=== PATIENT | male | born 1985 | race Caucasian/White ===

== ENCOUNTER 2017-12-18 15:35 | Outpatient (CLI) | payer OTHER | END 2017-12-18 15:36 | disposition home or self-care (01) | LOC: BICRAD 15:35 | PROVIDERS: ATTEND Physician Assistant | DX: R05 Cough (principal); R50.9 Fever, unspecified | CPT/HCPCS: 71046 ==

== ENCOUNTER 2017-12-21 10:32 | Outpatient (CLI) | payer OTHER ==
--- NOTE | 2017-12-21 13:35 | ULT ---
ULTRASOUND ABDOMEN: HISTORY: Elevated liver enzymes. Fever. FINDINGS: The liver demonstrates increased echogenicity, consistent with fatty infiltration. No focal mass or intrahepatic ductal dilatation is seen. The spleen measures 14.3 cm in length. A shadowing mobile g allstone is seen without gallbladder wall thickening or pericholecystic fluid. The common duct measu res 4 mm in diameter. The kidneys are unremarkable. The pancreas is not satisfactorily visualized. The visualized portions of the aorta and IVC are unremarkable. No free fluid is seen. IMPRESSION: 1. Fatty liver. 2. Splenomegaly. 3. Cholelithiasis. POS: [facility]
== END 2017-12-21 10:33 | disposition home or self-care (01) ==
LOC: ULT 10:32
PROVIDERS: ATTEND Physician Assistant
DX: R74.8 Abnormal levels of other serum enzymes (principal); K76.0 Fatty (change of) liver, not elsewhere classified; R16.1 Splenomegaly, not elsewhere classified; K80.20 Calculus of gallbladder without cholecystitis without obstruction
CPT/HCPCS: 76700

== ENCOUNTER 2018-03-21 08:43 | Outpatient (CLI) | payer OTHER | END 2018-03-21 08:44 | disposition home or self-care (01) | LOC: DTY/OP 08:43 | PROVIDERS: ATTEND Surgery | DX: E66.01 Morbid (severe) obesity due to excess calories (principal) | CPT/HCPCS: 97802 ==

== ENCOUNTER 2018-04-17 09:28 | Outpatient (CLI) | payer OTHER | END 2018-04-17 09:29 | disposition home or self-care (01) | LOC: DTY/OP 09:28 | PROVIDERS: ATTEND Surgery | DX: E66.01 Morbid (severe) obesity due to excess calories (principal) | CPT/HCPCS: 97802 ==

== ENCOUNTER 2018-05-01 15:45 | Outpatient (CLI) | payer OTHER | END 2018-05-01 15:46 | disposition home or self-care (01) | LOC: CTENTCT 15:45 | PROVIDERS: ATTEND Specialist | DX: J32.9 Chronic sinusitis, unspecified (principal) | CPT/HCPCS: 70486 ==

== ENCOUNTER 2018-06-07 11:57 | Day surgery (SDC) | payer OTHER ==
[2018-06-06 13:10] VITALS: BMI 49.5
[2018-06-07] MEDS ORDERED: Oxymetazoline HCl 0.05% ( 15 ML ) ONE ×2 (12:33→13:00)
[2018-06-07] MEDS ORDERED: Lidocaine 1% w/Epinephrine 1:100K 30 ML VIAL ONE (12:59)
[2018-06-07] MEDS ORDERED: Bacitracin Zinc Ointment 30 gm TUBE ONE (13:00)
[2018-06-07] MEDS ORDERED: EPINEPHrine 1 MG/10 ML Abboject SYRINGE ONE (13:00)
[2018-06-07] MEDS ORDERED: Midazolam HCl 2 mg/2 ml Vial ONE (13:09)
[2018-06-07] MEDS ORDERED: Fentanyl 100 MCG/2 ML VIAL ONE ×3 (13:09→14:54)
--- NOTE | 2018-06-07 18:24 | OP ---
PREOPERATIVE DIAGNOSES: Chronic sinusitis, nasal polyposis, deviated septum, hypertrophic inferior t urbinates. POSTOPERATIVE DIAGNOSES: Chronic sinusitis, nasal polyposis, deviated septum, hypertrophic inferior turbinates. PROCEDURES PERFORMED: 1. Bilateral nasal endoscopy with maxillary antrostomy with removal of tissue. 2. Bilateral nasal endoscopy with total ethmoidectomy. 3. Bilateral nasal endoscopy with frontal sinusotomy. 4. Bilateral nasal endoscopy with sphenoidotomy. 5. Bilateral nasal endoscopy with nasal polypectomy and septoplasty. 6. Bilateral nasal endoscopy with submucosal resection inferior turbinates. PROCEDURE IN DETAIL: After consent was obtained, the patient was identified, brought to the operatin g room, and placed on the operating room table in the supine position. Consent was obtained, notifyi ng the patient of the possibility of additional infections, bleeding, brain injury, and eye/orbital i njury. The patient was placed on the operating room table, and general endotracheal anesthesia and intravenous access was obtained. The patient was then positioned, prepped and draped for endoscopic sinus surgery. Nasal preparation included trimming nasal vestibular hairs and spraying in topical Af rin. We then placed Afrin topical solution on nasal pledgets and strategically located them intranas ally. The perinasal mucosa was injected with 1% lidocaine with 1:100,000 epinephrine in the submucop erichondrial plane of the septum, lateral nasal wall, and anterior to the uncinate. The patient was then prepped and draped in a sterile fashion and positioned for endoscopic sinus surgery. Endoscopic Sinus Surgery: With the 0-degree endoscope, the patient underwent systematic nasal endosc opy. There were no suspicious internasal masses or lesions identified. We then focused our attentio n to the osteomeatal complex region under the middle turbinate. Gabby Bullosa: The gabby bullosa was identified and entered with a sickle blade. The lateral aspe ct of the gabby bullosa was meticulously resected while leaving the medial most aspect to form the n ew middle turbinate. Attention was made not to violate the mucosa. The straight biting punches and micro-debrider were used to remove shrouds of mucosa and bony debris. Maxillary Antrostomy: The uncinate was then identified and the extent of the uncinate was appreciate d by out-fracturing the uncinate with the ball-tip probe. We then used the sickle blade to disarticu late the uncinate from the lateral nasal wall. This was then removed with straight biting and upbiti ng punches with the remaining shrouds of mucosa and bony septum removed with the micro-debrider. The natural os of the maxillary sinus was then identified and enlarged with the maxillary punches and ba ck biting forceps. Total Ethmoidectomy: The anterior face of the ethmoid bulla was entered and with the micro-debrider, dissection continued posteriorly to the ground lamella. The limits of dissection included the inser tion of the middle turbinate, medial orbital wall, and base of skull. We similarly identified the fr ontal recess and removed shrouds of bone and debris in that region to obtain patency into the agger n asi region and frontal recess. We then entered the ground lamella and its anteroinferior aspect and proceeded posteriorly, opening the posterior ethmoid air-cell system. Again, the limits of dissectio n included the base of skull and medial orbital wall. Sphenoidotomy: The anterior face of the sphenoid was identified and entered in its extreme anteroinferior aspect. A sphenoid punch was then used to enlarge the sphenoidotomy and no injury to the optic nerve or internal carotid artery occurred. Outfracture of the Inferior Turbinates: The inferior turbinates were visualized under endoscopic vis ualization and outfractured with the elevator. The inferolateral edge of the inferior turbinate was then cauterized along its length with the suction cautery without difficulty. Outfracture & Cautery of the Inferior Turbinates: The inferior turbinates were visualized with a 0-d egree endoscope and outfractured with a [place] elevator. The inferior medial aspect was cauterized wi th the electrocautery. Hemostasis was obtained. After adequate airway was established, we turned ou r attention to the contralateral side and used a similar procedure. Again, a [place] elevator was used to outfracture inferior turbinates under endoscopic visualization. With a suction cautery, the free inferior medial aspect was cauterized under direct visualization along the length of the inferior tu rbinate. Septoplasty: After local anesthesia was infiltrated into the submucoperichondrial plane, a standard Eliseo incision was made with a #15 blade down to the level of the septal cartilage. The caudal phil vator was used to elevate the mucoperichondrium from the underlying cartilage. We then proceeded bey ond the bony cartilaginous junction and elevated the bony periosteum as well. Great attention was pa id to the spur to prevent rent formation in the septal flap. A transcartilaginous incision was then m ally, while preserving an adequate dorsal and caudal cartilaginous strut for tip support. The deforme d cartilage was removed and disarticulated from the bony cartilaginous junction and maxillary crest. This was placed in saline and would later be crushed and returned to the mucoperichondrial envelope. We then elevated the contralateral periosteum from the bony cartilaginous region and removed the de formed portions of the bone and bony spurs. The cartilage was then crushed and placed back into the mucoperichondrial envelope and the mucosa was re-approximated with a quilting stitch composed of rapi dly absorbent gut suture. The Eliseo incision was also closed with interrupted gut suture. At the completion of the case, Bowles splints were placed and suture secured to the caudal septum. At the completion of the case, Rice keel splints were placed in the ethmoid cavities after the ethmoi dectomy. There were no complications. The patient tolerated the procedure well and was discharged t o the recovery room in stable condition prior to return to the preoperative Day Stay with [facility]. Prescriptions for pain medication and antibiotics were provided. The patient received intramuscular Depo-Medrol during the case.
== END 2018-06-07 17:13 | disposition home or self-care (01) ==
LOC: SDC 11:57
PROVIDERS: ATTEND Specialist
PROC: 09SM0ZZ Reposition Nasal Septum, Open Approach (ICD-10-PCS; principal; 2018-06-07)
PROC: 09TU8ZZ Resection of Right Ethmoid Sinus, Via Natural or Artificial Opening Endoscopic (ICD-10-PCS; principal; 2018-06-07)
PROC: 099Q8ZZ Drainage of Right Maxillary Sinus, Via Natural or Artificial Opening Endoscopic (ICD-10-PCS; principal; 2018-06-07)
PROC: 09TV8ZZ Resection of Left Ethmoid Sinus, Via Natural or Artificial Opening Endoscopic (ICD-10-PCS; principal; 2018-06-07)
PROC: 09CW8ZZ Extirpation of Matter from Right Sphenoid Sinus, Via Natural or Artificial Opening Endoscopic (ICD-10-PCS; principal; 2018-06-07)
PROC: 095L8ZZ Destruction of Nasal Turbinate, Via Natural or Artificial Opening Endoscopic (ICD-10-PCS; principal; 2018-06-07)
PROC: 09CX8ZZ Extirpation of Matter from Left Sphenoid Sinus, Via Natural or Artificial Opening Endoscopic (ICD-10-PCS; principal; 2018-06-07)
PROC: 099R8ZZ Drainage of Left Maxillary Sinus, Via Natural or Artificial Opening Endoscopic (ICD-10-PCS; principal; 2018-06-07)
DX: J32.8 Other chronic sinusitis (principal); J34.2 Deviated nasal septum; J34.3 Hypertrophy of nasal turbinates; H69.83 Other specified disorders of Eustachian tube, bilateral; I10 Essential (primary) hypertension; J45.909 Unspecified asthma, uncomplicated; F32.9 Major depressive disorder, single episode, unspecified; F41.9 Anxiety disorder, unspecified; F17.220 Nicotine dependence, chewing tobacco, uncomplicated; Z79.899 Other long term (current) drug therapy
CPT/HCPCS: 96374; J0171; J2001; J2250; J3010

== ENCOUNTER 2018-06-12 08:48 | Outpatient (CLI) | payer OTHER | END 2018-06-12 08:49 | disposition home or self-care (01) | LOC: DTY/OP 08:48 | PROVIDERS: ATTEND Surgery | DX: E66.01 Morbid (severe) obesity due to excess calories (principal) | CPT/HCPCS: 97802 ==

== ENCOUNTER 2018-07-10 10:15 | Inpatient (IN) | payer OTHER ==
[2018-07-18] MEDS ORDERED: Bupivacaine/Epinephrine 0.25% 30 ML VIAL ONE ×2 (06:39→06:50)
[2018-07-18] MEDS ORDERED: CEFAZOLIN/Water 2 GM/20 ML SYRINGE ONE (06:45)
[2018-07-18] MEDS ORDERED: Heparin 5,000 UNITS/ML VIAL ONE (06:45)
[2018-07-18] MEDS ORDERED: Fentanyl 100 MCG/2 ML VIAL ONE ×3 (06:51→09:38)
[2018-07-18] MEDS ORDERED: Famotidine/PF 20 mg/2ml Vial ONE (06:52)
[2018-07-18] MEDS ORDERED: Midazolam HCl 2 mg/2 ml Vial ONE (07:30)
[2018-07-18] MEDS ORDERED: Dextrose 5% in Water 1,000 ML IV PRN (08:55)
[2018-07-18] MEDS ORDERED: Promethazine HCl 25 MG/ML VIAL IM PRN ×3 (08:55→09:19)
[2018-07-18] MEDS ORDERED: Ondansetron PF 4 MG/2 ML Vial IVP PRN ×2 (08:55→09:19)
[2018-07-18] MEDS ORDERED: hydrALAZINE 20 MG/ML VIAL SLOW IVP PRN (08:55)
[2018-07-18] MEDS ORDERED: diphenhydrAMINE 50 MG/ML VIAL IVP PRN ×2 (08:55→09:19)
[2018-07-18] MEDS ORDERED: Hydrocodone-Acetamin 15 ML UDCUP PO PRN (08:55)
[2018-07-18] MEDS ORDERED: Dextrose 50% Abboject 50 ML SYRINGE SLOW IVP PRN (08:55)
[2018-07-18] MEDS ORDERED: Promethazine HCl 25 MG/ML VIAL SLOW IVP PRN (09:12)
[2018-07-18] MEDS ORDERED: HYDROmorphone 2 MG/ML VIAL SLOW IVP PRN (09:12)
[2018-07-18] MEDS ORDERED: Ketorolac Tromethamine 30 MG/ML VIAL IVP PRN ×2 (09:12→09:19)
[2018-07-18] MEDS ORDERED: Meperidine HCl/PF 25 MG/ML VIAL SLOW IVP PRN (09:12)
[2018-07-18] MEDS ORDERED: Ondansetron HCl/PF 4 MG/2 ML Vial IVP PRN (09:12)
[2018-07-18] MEDS ORDERED: diphenhydrAMINE 25 MG CAP PO PRN (09:19)
[2018-07-18] MEDS ORDERED: Naloxone HCl 0.4 mg/ml Vial IV PRN (09:19)
[2018-07-18] MEDS ORDERED: fentaNYL Citrate/PF 2,000 MCG in Sodium Chloride 0.9% 60 ML IV PRN (09:19)
[2018-07-18] MEDS ORDERED: Zolpidem Tartrate 5 MG TAB PO PRN (09:19)
[2018-07-18] MEDS ORDERED: diphenhydrAMINE 50 MG/ML VIAL IM PRN (09:19)
[2018-07-18] MEDS ORDERED: Communication Order-Pharmacy FS SCH (09:30)
--- NOTE | 2018-07-18 10:51 | OP ---
DATE OF PROCEDURE: 07/18/2018 PREOPERATIVE DIAGNOSIS: Morbid obesity. SURGEON: Enoc Connolly M.D. PROCEDURE: Laparoscopic sleeve gastrectomy with intraoperative esophagogastroscopy. INDICATIONS: This is a 33-year-old male who has been obese for many years and attempted multiple chip ght loss programs without success. FINDINGS: A 38 Mongolian bougie used. PROCEDURE IN DETAIL: After informed consent was obtained, the patient was taken to the operating juan m m and given general endotracheal anesthesia, placed in the supine position. The abdomen was prepped and draped in usual fashion. Local anesthesia infiltrated subcutaneously and deep and a 12 mm incisi on was performed approximately 8 inches below the xiphoid slightly to the left. Veress needle insert ed. Drop test performed. Pneumoperitoneum was created to a volume of 2 liters of carbon dioxide. U tilizing a bladeless 12 mm trocar and 0 degree laparoscope, direct visual entry in the abdominal cavi ty was performed. Pneumoperitoneum was created to a pressure of 15 mmHg and the patient placed in st eep reverse Trendelenburg position. Boben liver retractor inserted. Left lobe of liver retracte d superiorly. Pylorus identified, a 12 mm port was placed just beneath the pylorus on the right and then two 12s placed left subcostal. The omentum was taken off the greater curvature 5 cm from the py lorus utilizing the LigaSure. Short gastrics divided with LigaSure, left crura defined with the Liga Sure. A 38-Mongolian bougie inserted directed into the antrum. The linear 60 mm green load stapler use d to divide the antrum to the bougie, gold load along the bougie, and a series of blues through the a ngle of His. Intraoperative endoscopy was performed. The video endoscope inserted under direct visi on and advanced into the sleeve. The staple line inspected. There was no bleeding. Staple line the n tested by inflating the new stomach with pressurized air under water. There was no air leak. Stom ach decompressed. Scope removed. The remnant stomach removed from the abdomen through the left late ral port site. The fascia closed with 0 Vicryl suture and the GraNee needle. Trocars and retractors removed. The skin closed with interrupted 4-0 Rapide. Dermabond applied. The patient tolerated th e procedure well and was transferred to recovery in good condition. Sponge and needle count verified correct x2.
[2018-07-18 11:02] VITALS: BMI 47.8
[2018-07-18] MEDS: Pantoprazole 40 MG VIAL IVP SCH (11:34)
[2018-07-18] MEDS: Enoxaparin Sodium 40 MG/0.4 ML SYRINGE SC SCH (11:34)
[2018-07-18] MEDS: D5 1/2 NS w/20 mEq KCL 1,000 ML IV SCH ×2 (11:38→18:25)
[2018-07-18] MEDS: Ketorolac Tromethamine 30 MG/ML VIAL IVP SCH ×2 (11:38→17:31)
[2018-07-18] MEDS: CEFAZOLIN/Water 2 GM/20 ML SYRINGE SLOW IVP SCH ×2 (13:25→21:51)
[2018-07-18] MEDS ORDERED: Metoclopramide HCl 10 MG/2 ML VIAL ONE (13:43)
[2018-07-18] MEDS ORDERED: ePHEDrine/0.9% NaCl/PF SYRINGE 50 mg/10 ml ONE (13:43)
[2018-07-18] MEDS ORDERED: PROPOFOL 200 MG/20 ML VIAL ONE (13:43)
[2018-07-18] MEDS ORDERED: Dexamethasone 20 MG/5 ML VIAL ONE (13:43)
[2018-07-18] MEDS ORDERED: Glycopyrrolate 0.2 MG/ML 5 ML SYRINGE ONE (13:43)
[2018-07-18] MEDS ORDERED: Lidocaine 1% PF 5 ML VIAL ONE (13:43)
[2018-07-18] MEDS ORDERED: Ondansetron PF 4 MG/2 ML Vial ONE (13:43)
[2018-07-19] MEDS: Ketorolac Tromethamine 30 MG/ML VIAL IVP SCH ×3 (00:44→11:41)
[2018-07-19] MEDS: D5 1/2 NS w/20 mEq KCL 1,000 ML IV SCH ×2 (01:55→11:09)
[2018-07-19 06:01] LABS: #Lymphocytes 2.1 thou/uL (1.20-3.40); #Monocytes 0.9 thou/uL (0.11-0.59); #Neutrophils 10.3 thou/uL (1.40-6.50); %Basophils 0.1 % (0.0-1.0); %Eosinophils 0.1 % (0.0-10.0); %Lymphocytes 15.8 % (21.0-51.0); %Monocytes 7.1 % (0.0-10.0); Hemoglobin 12.4 g/dL (14.0-18.0); Mean Corpuscular HGB CONC 33.4 g/dL (32.0-36.0); Mean Corpuscular Volume 95.8 fL (78.0-98.0); Mean Platelet Volume 7.2 fL (7.4-10.4); Platelet Count 289 thou/uL (130-400); RBC Distribution Width 11.1 % (11.5-14.5); Red Blood Cell (RBC) Count 3.86 mill/uL (4.70-6.10); White Blood Cell (WBC) Count 13.4 thou/uL (4.8-10.8)
[2018-07-19 06:24] LABS: Anion Gap 12 mmol/L (10-20); BUN (Urea Nitrogen) 15 mg/dL (8.9-20.6); Calc. Creatinine Clearance 222 mL/min (70-130); Calcium 8.9 mg/dL (7.8-10.44); Carbon Dioxide 22 mmol/L (22-29); Chloride 106 mmol/L (98-107); Estimated GFR-MDRD 80; Glucose 132 mg/dL (70-105); Potassium 4.5 mmol/L (3.5-5.1); Sodium 135 mmol/L (136-145)
[2018-07-19 07:45] VITALS: TEMP 98.1
[2018-07-19] MEDS: Enoxaparin Sodium 40 MG/0.4 ML SYRINGE SC SCH (09:05)
[2018-07-19] MEDS: Pantoprazole 40 MG VIAL IVP SCH (09:05)
[2018-07-19] MEDS ORDERED: GASTROGRAFIN 30 ML BOT ONE (09:43)
--- NOTE | 2018-07-19 11:27 | DIS ---
DATE OF ADMISSION: 07/18/2018 DATE OF DISCHARGE: 07/19/2018 DISCHARGE DIAGNOSIS: Morbid obesity. PROCEDURES DURING ADMISSION: Laparoscopic sleeve gastrectomy, intraoperative esophagogastroscopy, po stoperative Gastrografin swallow. HOSPITAL COURSE: The patient was admitted, taken to the operating room where he underwent a sleeve g astrectomy. Postoperatively, he has done well. His x-ray was fine. He is tolerating liquids well. He is discharged home in good condition on hydrocodone and Zofran. He will follow up with me in 2 w eeks.
[2018-07-19 11:29] VITALS: BP 113/70
--- NOTE | 2018-07-19 12:08 | RAD ---
ESOPHAGRAM: HISTORY: Bariatric surgery. FINDINGS: A single-column contrast evaluation shows postoperative changes, consistent with a recent gastric sle koko procedure. There is no evidence of obstruction or leak. FLUOROSCOPY TIME: 0.3 minutes. POS: [facility]
== END 2018-07-19 12:05 | disposition home or self-care (01) | DRG 621 ==
LOC: SURG A 07-18 05:52 → SURG B 07-18 10:40
PROVIDERS: ADMIT Surgery; ATTEND Surgery
PROC: 0DB64Z3 Excision of Stomach, Percutaneous Endoscopic Approach, Vertical (ICD-10-PCS; principal; 2018-07-18)
PROC: 0DJ08ZZ Inspection of Upper Intestinal Tract, Via Natural or Artificial Opening Endoscopic (ICD-10-PCS; 2018-07-18)
DX: E66.01 Morbid (severe) obesity due to excess calories (principal); Z68.42 Body mass index [BMI] 45.0-49.9, adult; Z79.899 Other long term (current) drug therapy; Z79.1 Long term (current) use of non-steroidal anti-inflammatories (NSAID); Z79.891 Long term (current) use of opiate analgesic; Z79.2 Long term (current) use of antibiotics; J06.9 Acute upper respiratory infection, unspecified
CPT/HCPCS: 36415; 74241; 80048; 85025; 87070; 88307; 88312; 90471; 90686; C9113; G0008; J0131; J1100; J1644; J1650; J1885; J2001; J2250; J2405; J2704; J2765; J3010; J7050; S0028

== ENCOUNTER 2018-07-10 10:24 | Outpatient (CLI) | payer OTHER ==
[2018-07-10 12:03] LABS: #Basophils 0.1 thou/uL (0.0-0.2); #Eosinphils 0.1 thou/uL (0.0-0.7); #Lymphocytes 2.4 thou/uL (1.20-3.40); #Monocytes 0.5 thou/uL (0.11-0.59); #Neutrophils 3.6 thou/uL (1.40-6.50); %Basophils 0.8 % (0.0-1.0); %Eosinophils 2.1 % (0.0-10.0); %Lymphocytes 36.1 % (21.0-51.0); %Monocytes 7.3 % (0.0-10.0); %Neutrophils 53.8 % (42.0-75.0); Hemoglobin 14.4 g/dL (14.0-18.0); Mean Corpuscular HGB CONC 33.9 g/dL (32.0-36.0); Mean Corpuscular Hemoglobin 32.2 pg (27.0-31.0); Platelet Count 269 thou/uL (130-400); RBC Distribution Width 11.3 % (11.5-14.5); Red Blood Cell (RBC) Count 4.49 mill/uL (4.70-6.10); White Blood Cell (WBC) Count 6.6 thou/uL (4.8-10.8)
[2018-07-10 12:13] LABS: ALT (SGPT) 39 U/L (8-55); AST (SGOT) 25 U/L (5-34); Albumin 4.5 g/dL (3.5-5.0); Alkaline Phosphatase 88 U/L (40-150); Anion Gap 11 mmol/L (10-20); BUN (Urea Nitrogen) 14 mg/dL (8.9-20.6); Bilirubin, Direct 0.3 mg/dL (0.1-0.3); Calc. Creatinine Clearance 0 mL/min (70-130); Calcium 9.1 mg/dL (7.8-10.44); Carbon Dioxide 25 mmol/L (22-29); Chloride 106 mmol/L (98-107); Estimated GFR-MDRD 78; Glucose 89 mg/dL (70-105); Potassium 4.3 mmol/L (3.5-5.1); Protein, Total 7.5 g/dL (6.0-8.3); Sodium 138 mmol/L (136-145)
[2018-07-10 12:26] LABS: Hemoglobin A1c 5.3 % (4.0-6.0)
--- NOTE | 2018-07-10 12:28 | RAD ---
TWO VIEW CHEST: INDICATION: Preop evaluation. FINDINGS: The lungs are clear. There is no effusion or pneumothorax. Cardiac silhouette is within normal limi ts of size. IMPRESSION: No focal consolidation. POS: [facility]
--- NOTE | 2018-07-11 07:53 | EKG ---
Test Reason : Blood Pressure : / mmHG Vent. Rate : 073 BPM Atrial Rate : 073 BPM P-R Int : 148 ms QRS Dur : 102 ms QT Int : 394 ms P-R-T Axes : 060 023 015 degrees QTc Int : 434 ms Normal sinus rhythm Normal ECG No previous ECGs available Confirmed by JAYLEN NEWBY ([id number]) on 07/11/2018 7:53:00 AM Referred By: NABOR Confirmed By:JAYLEN NEWBY
== END 2018-07-10 10:25 | disposition home or self-care (01) ==
LOC: LABBT 10:24
PROVIDERS: ATTEND Surgery
DX: Z01.818 Encounter for other preprocedural examination (principal); E66.01 Morbid (severe) obesity due to excess calories
CPT/HCPCS: 71046; 80053; 80076; 83036; 85025; 93005; 93010

== ENCOUNTER 2018-07-27 12:28 | Day surgery (SDC) | payer OTHER ==
[2018-07-27] MEDS ORDERED: Multivit, Adult Inj 10 ML VIAL ONE (13:22)
[2018-07-27] MEDS ORDERED: Ondansetron PF 4 MG/2 ML Vial ONE (13:23)
== END 2018-07-27 14:40 | disposition home or self-care (01) ==
LOC: SCSER/OP 12:28
PROVIDERS: ATTEND Surgery
DX: E86.0 Dehydration (principal); R51 Headache; F41.9 Anxiety disorder, unspecified; F32.9 Major depressive disorder, single episode, unspecified; F17.220 Nicotine dependence, chewing tobacco, uncomplicated; E03.9 Hypothyroidism, unspecified
CPT/HCPCS: J2405

== ENCOUNTER 2020-12-26 22:57 | Inpatient (IN) | payer BC ==
[2020-12-26] MEDS ORDERED: Senokot S 8.6-50 MG TAB PO SCH (23:45)
[2020-12-27] MEDS: Acetaminophen 325 MG TAB PO PRN ×4 (00:15→20:01)
[2020-12-27] MEDS: Morphine 4 MG/ML VIAL SLOW IVP PRN (00:16)
[2020-12-27 00:28] VITALS: BMI 26.2
[2020-12-27 04:57] LABS: #Eosinphils 0.3 thou/uL (0.0-0.7); #Lymphocytes 2.1 thou/uL (1.20-3.40); #Monocytes 0.5 thou/uL (0.11-0.59); #Neutrophils 3.3 thou/uL (1.40-6.50); %Basophils 0.6 % (0.0-1.0); %Eosinophils 4.1 % (0.0-10.0); %Lymphocytes 33.8 % (21.0-51.0); %Monocytes 8.1 % (0.0-10.0); %Neutrophils 53.4 % (42.0-75.0); Mean Corpuscular HGB CONC 35.1 g/dL (32.0-36.0); Mean Platelet Volume 6.7 fL (7.4-10.4); Platelet Count 148 thou/uL (130-400); RBC Distribution Width 10.9 % (11.5-14.5); Red Blood Cell (RBC) Count 3.52 mill/uL (4.70-6.10); White Blood Cell (WBC) Count 6.2 thou/uL (4.8-10.8)
[2020-12-27] MEDS: metroNIDAZOLE 500 MG in Premix Bag 1 BAG IVPB SCH ×3 (05:13→22:26)
[2020-12-27 05:16] LABS: ALT (SGPT) 12 U/L (8-55); AST (SGOT) 13 U/L (5-34); Albumin 3.6 g/dL (3.5-5.0); Alkaline Phosphatase 80 U/L (40-110); Anion Gap 6 mmol/L (10-20); BUN (Urea Nitrogen) 15 mg/dL (8.9-20.6); Bilirubin, Total 0.5 mg/dL (0.2-1.2); Calc. Creatinine Clearance 109 mL/min (70-130); Calcium 8.1 mg/dL (7.8-10.44); Carbon Dioxide 32 mmol/L (22-29); Chloride 108 mmol/L (98-107); Globulin 2.4 g/dL (2.4-3.5); Glucose 80 mg/dL (70-105); Potassium 4.1 mmol/L (3.5-5.1); Sodium 142 mmol/L (136-145)
[2020-12-27] MEDS: Senokot S 8.6-50 MG TAB PO SCH ×2 (08:50→20:01)
[2020-12-27] MEDS: Famotidine 20 MG TAB PO SCH ×2 (08:50→20:01)
[2020-12-27] MEDS: Sodium Chloride 0.9% 1,000 ML IV SCH ×2 (08:51→17:51)
[2020-12-27] MEDS: Ondansetron PF 4 MG/2 ML Vial IVP PRN ×2 (08:59→22:29)
[2020-12-27] MEDS ORDERED: ALPRAZolam 0.25 MG TAB PO PRN (14:44)
[2020-12-27] MEDS ORDERED: busPIRone HCl 10 MG TAB PO SCH (16:00)
[2020-12-27] MEDS ORDERED: Venlafaxine HCl XR 75 MG CAP PO SCH (16:00)
[2020-12-27 17:16] LABS: SARS-CoV-2 PCR by NAA Not Detected (NotDetected)
[2020-12-27] MEDS: busPIRone HCl 10 MG TAB PO SCH (20:01)
[2020-12-28] MEDS: Sodium Chloride 0.9% 1,000 ML IV SCH ×3 (03:32→20:13)
[2020-12-28 04:57] LABS: #Eosinphils 0.2 thou/uL (0.0-0.7); #Lymphocytes 1.7 thou/uL (1.20-3.40); #Monocytes 0.2 thou/uL (0.11-0.59); #Neutrophils 1.6 thou/uL (1.40-6.50); %Basophils 0.4 % (0.0-1.0); %Eosinophils 6.2 % (0.0-10.0); %Lymphocytes 44.4 % (21.0-51.0); %Monocytes 6.1 % (0.0-10.0); %Neutrophils 42.8 % (42.0-75.0); Hemoglobin 11.5 g/dL (14.0-18.0); Mean Corpuscular HGB CONC 35.2 g/dL (32.0-36.0); Mean Corpuscular Hemoglobin 34.3 pg (27.0-31.0); Mean Corpuscular Volume 97.3 fL (78.0-98.0); Mean Platelet Volume 7.2 fL (7.4-10.4); Platelet Count 134 thou/uL (130-400); RBC Distribution Width 10.8 % (11.5-14.5); Red Blood Cell (RBC) Count 3.37 mill/uL (4.70-6.10); White Blood Cell (WBC) Count 3.8 thou/uL (4.8-10.8)
[2020-12-28 05:22] LABS: ALT (SGPT) 9 U/L (8-55); AST (SGOT) 11 U/L (5-34); Albumin 3.5 g/dL (3.5-5.0); Alkaline Phosphatase 75 U/L (40-110); Anion Gap 9 mmol/L (10-20); BUN (Urea Nitrogen) 12 mg/dL (8.9-20.6); Bilirubin, Total 0.5 mg/dL (0.2-1.2); Calc. Creatinine Clearance 102 mL/min (70-130); Calcium 8.2 mg/dL (7.8-10.44); Carbon Dioxide 28 mmol/L (22-29); Chloride 107 mmol/L (98-107); Globulin 2.3 g/dL (2.4-3.5); Glucose 84 mg/dL (70-105); Protein, Total 5.8 g/dL (6.0-8.3); Sodium 140 mmol/L (136-145)
[2020-12-28] MEDS: metroNIDAZOLE 500 MG in Premix Bag 1 BAG IVPB SCH ×3 (05:42→22:25)
[2020-12-28] MEDS ORDERED: cefOXitin 2 GM in Sodium Chloride 0.9% 100 ML IVPB SCH (09:00)
[2020-12-28] MEDS: Venlafaxine HCl XR 75 MG CAP PO SCH (09:44)
[2020-12-28] MEDS: busPIRone HCl 10 MG TAB PO SCH ×2 (09:44→20:05)
[2020-12-28] MEDS: Senokot S 8.6-50 MG TAB PO SCH ×2 (09:44→20:05)
[2020-12-28] MEDS: Famotidine 20 MG TAB PO SCH ×2 (09:44→20:03)
[2020-12-28] MEDS ORDERED: cefOXitin Sodium/Dextrose 2 GM/50 ML BAG ONE (10:45)
[2020-12-28] MEDS ORDERED: Fentanyl 100 MCG/2 ML VIAL ONE ×3 (12:11→14:38)
[2020-12-28] MEDS ORDERED: Promethazine HCl 25 MG/ML VIAL IM PRN ×2 (12:30→13:39)
[2020-12-28] MEDS ORDERED: Promethazine HCl 25 MG/ML VIAL SLOW IVP PRN (12:30)
[2020-12-28] MEDS ORDERED: Ondansetron HCl/PF 4 MG/2 ML Vial IVP PRN (12:30)
[2020-12-28] MEDS ORDERED: Glycopyrrolate 0.2 MG/ML 5 ML SYRINGE ONE (12:39)
[2020-12-28] MEDS ORDERED: Lidocaine 1% PF 5 ML VIAL ONE (12:39)
[2020-12-28] MEDS ORDERED: Rocuronium Bromide 10 MG/ML (10ML VIAL) ONE (12:39)
[2020-12-28] MEDS ORDERED: Dexamethasone 20 MG/5 ML VIAL ONE (12:39)
[2020-12-28] MEDS ORDERED: Ondansetron PF 4 MG/2 ML Vial ONE (12:39)
[2020-12-28] MEDS ORDERED: Ketorolac Tromethamine 30 MG/ML VIAL ONE (12:39)
[2020-12-28] MEDS ORDERED: PROPOFOL 200 MG/20 ML VIAL ONE (12:39)
[2020-12-28] MEDS ORDERED: hydrALAZINE 20 MG/ML VIAL SLOW IVP PRN (13:39)
[2020-12-28] MEDS ORDERED: Morphine 2 MG/ML VIAL SLOW IVP PRN (13:39)
[2020-12-28] MEDS ORDERED: Dextrose 5% in Water 1,000 ML IV PRN (13:39)
[2020-12-28] MEDS ORDERED: Ondansetron PF 4 MG/2 ML Vial IVP PRN (13:39)
[2020-12-28] MEDS ORDERED: Mag-Al 1200 mg/1200 mg/30 ML UDCUP PO PRN (13:39)
[2020-12-28] MEDS ORDERED: Calcium Carbonate 500 MG ChewTAB PO PRN (13:39)
[2020-12-28] MEDS ORDERED: Dextrose 50% Abboject 50 ML SYRINGE SLOW IVP PRN (13:39)
[2020-12-28] MEDS ORDERED: HYDROcodone/Acetaminophen 10/325 mg Tablet PO PRN (13:39)
[2020-12-28] MEDS ORDERED: Promethazine HCl 25 MG/ML VIAL ONE (14:16)
[2020-12-28] MEDS: Famotidine/PF 20 mg/2ml Vial SLOW IVP SCH (20:14)
[2020-12-28] MEDS: Morphine 4 MG/ML VIAL SLOW IVP PRN (22:25)
[2020-12-28] MEDS: Acetaminophen 325 MG TAB PO PRN (22:25)
[2020-12-29] MEDS: HYDROcodone/Acetaminophen 10/325 mg Tablet PO PRN ×3 (00:20→12:19)
[2020-12-29] MEDS: Morphine 4 MG/ML VIAL SLOW IVP PRN (04:23)
[2020-12-29] MEDS: metroNIDAZOLE 500 MG in Premix Bag 1 BAG IVPB SCH (05:09)
[2020-12-29 05:43] LABS: #Lymphocytes 1.3 thou/uL (1.20-3.40); #Monocytes 0.4 thou/uL (0.11-0.59); #Neutrophils 4.8 thou/uL (1.40-6.50); %Basophils 0.3 % (0.0-1.0); %Eosinophils 0.1 % (0.0-10.0); %Lymphocytes 19.4 % (21.0-51.0); %Monocytes 6.6 % (0.0-10.0); %Neutrophils 73.5 % (42.0-75.0); Hemoglobin 11.2 g/dL (14.0-18.0); Mean Corpuscular HGB CONC 34.7 g/dL (32.0-36.0); Mean Corpuscular Hemoglobin 33.5 pg (27.0-31.0); Mean Corpuscular Volume 96.7 fL (78.0-98.0); Mean Platelet Volume 7.5 fL (7.4-10.4); Platelet Count 147 thou/uL (130-400); RBC Distribution Width 10.8 % (11.5-14.5); Red Blood Cell (RBC) Count 3.34 mill/uL (4.70-6.10); White Blood Cell (WBC) Count 6.6 thou/uL (4.8-10.8)
[2020-12-29 06:06] LABS: ALT (SGPT) 24 U/L (8-55); AST (SGOT) 27 U/L (5-34); Albumin 3.3 g/dL (3.5-5.0); Alkaline Phosphatase 73 U/L (40-110); Anion Gap 13 mmol/L (10-20); BUN (Urea Nitrogen) 10 mg/dL (8.9-20.6); Bilirubin, Total 0.5 mg/dL (0.2-1.2); Calc. Creatinine Clearance 107 mL/min (70-130); Calcium 8.2 mg/dL (7.8-10.44); Carbon Dioxide 23 mmol/L (22-29); Chloride 104 mmol/L (98-107); Globulin 2.4 g/dL (2.4-3.5); Glucose 97 mg/dL (70-105); Lipase 11 U/L (8-78); Protein, Total 5.7 g/dL (6.0-8.3); Sodium 136 mmol/L (136-145)
[2020-12-29] MEDS ORDERED: Enoxaparin Sodium 30 MG/0.3 ML SYRINGE SC SCH (09:00)
[2020-12-29] MEDS: Famotidine/PF 20 mg/2ml Vial SLOW IVP SCH (09:09)
[2020-12-29] MEDS: busPIRone HCl 10 MG TAB PO SCH (09:13)
[2020-12-29] MEDS: Senokot S 8.6-50 MG TAB PO SCH (09:14)
[2020-12-29] MEDS: Venlafaxine HCl XR 75 MG CAP PO SCH (09:14)
[2020-12-29] MEDS: Famotidine 20 MG TAB PO SCH (09:14)
[2020-12-29 11:41] VITALS: BP 143/88; TEMP 98.4
== END 2020-12-29 13:00 | disposition home or self-care (01) | DRG 418 ==
LOC: SJJU 22:57
PROVIDERS: ADMIT Internal Medicine; ATTEND Internal Medicine
PROC: 0FT44ZZ Resection of Gallbladder, Percutaneous Endoscopic Approach (ICD-10-PCS; principal; 2020-12-28)
DX: K80.12 Calculus of gallbladder with acute and chronic cholecystitis without obstruction (principal); L76.32 Postprocedural hematoma of skin and subcutaneous tissue following other procedure; F39 Unspecified mood [affective] disorder; Z20.822 Contact with and (suspected) exposure to COVID-19; F41.9 Anxiety disorder, unspecified; M19.90 Unspecified osteoarthritis, unspecified site; H55.01 Congenital nystagmus; Y83.8 Other surgical procedures as the cause of abnormal reaction of the patient, or of later complication, without mention of misadventure at the time of the procedure; Z98.84 Bariatric surgery status; Z79.899 Other long term (current) drug therapy; Z80.1 Family history of malignant neoplasm of trachea, bronchus and lung; Z80.8 Family history of malignant neoplasm of other organs or systems
CPT/HCPCS: 36415; 78227; 80053; 83690; 85025; 87635; 88304; A9537; J0694; J1100; J1650; J1885; J1956; J2270; J2405; J2550; J2704; J3010; U0003; U0005